=== PATIENT | female | born 1960 | race Two or more races ===

== ENCOUNTER 2023-06-24 15:48 | Outpatient (CLI) | payer MEDICARE, MEDICAID ==
[~2023-06-24 15:48] MED LIST: CITA20TA28 PO; COROTSUS LEFT EAR; METF500T PO; TRAZ-251 PO
== END 2023-06-24 23:59 | disposition home or self-care (01) ==
LOC: RAD 15:48
PROVIDERS: ATTEND Podiatrist
DX: M25.571 Pain in right ankle and joints of right foot (principal)
CPT/HCPCS: 73610